=== PATIENT | female | born 1990 | race African-American/Black ===

== ENCOUNTER 2016-10-13 22:29 | Emergency (ER) | payer MEDICARE, OTHER ==
[~2016-10-13] VITALS: Ht 154.9 cm; Wt 43.1 kg
[2016-10-13 22:44] VITALS: BP 152/86
[2016-10-13] MEDS ORDERED: FLUORESCEIN OPHTH TEST STRIP. ONE (23:09)
[2016-10-13] MEDS ORDERED: PROPARACAINE 0.5% OPHTH SOLUTION 15ML BOTTLE. ONE (23:10)
[2016-10-13] MEDS ORDERED: FLUORESCEIN OPHTH TEST STRIP. OS ONE (23:15)
[2016-10-13] MEDS ORDERED: PROPARACAINE 0.5% OPHTH SOLUTION 15ML BOTTLE. OS ONE (23:15)
[2016-10-13] MEDS ORDERED: ERYTHROMYCIN 0.5% OPHTH OINTMENT 1GM TUBE. OS ONE (23:30)
[2016-10-13] MEDS ORDERED: ERYT1OIN6 LEFTEYE (23:31)
--- NOTE | 2016-10-13 23:32 | PHYS DOC ---
Past Medical History Past Medical History: Seizure, Other Additional Past Medical Histor: CHRONIC HIVES Past Surgical History: No Surgical History Alcohol Use: None Drug Use: None Adult General Chief Complaint Chief Complaint: EYE PROBLEMS HPI HPI Patient is a 25 year old female who presents with complaint of left eye pain. Patient states that she accidentally poked herself in the eye yesterday and has been having pain to the left eye since. Patient noticed increased redness and irritation after awakening today. Patient has been using Visine drops with no relief in symptoms. Patient states that she has had clear drainage from the eye. Patient denies any purulent drainage, fever, or any other symptoms. Review of Systems Review of Systems Constitutional: Denies fever or chills [] Eyes: Left eye redness and pain, denies change in visual acuity [] HENT: Denies nasal congestion or sore throat [] Neurologic: Denies headache, focal weakness or sensory changes [] Current Medications Current Medications Current Medications Medications (Trade) Dose Ordered Sig/Gena Start Time Stop Time Status Last Admin Dose Admin Erythromycin (Romycin) 0.5 inch 1X STAT 10/13/16 23:23 10/13/16 23:24 UNV Fluorescein Sodium (Ful-Evita) 1 strip STK-MED ONCE 10/13/16 23:09 10/13/16 23:10 DC Proparacaine HCl (Alcaine) 150 drop STK-MED ONCE 10/13/16 23:10 10/13/16 23:11 DC Allergies Allergies Allergies Coded Allergies Type Severity Reaction Last Updated Verified No Known Drug Allergies 10/13/16 No Physical Exam Physical Exam Constitutional: Well developed, well nourished, no acute distress, non-toxic appearance. [] HENT: Normocephalic, atraumatic, bilateral external ears normal, oropharynx moist, no oral exudates, nose normal. [] Eyes: PERRLA, EOMI, left scleral injection present, inspection under Wood's lamp using fluorescein dye shows 3 small corneal abrasions overlying the pupil. [] Neurologic: Alert and oriented X 3, normal motor function, normal sensory function, no focal deficits noted. [] Current Patient Data Vital Signs Vital Signs Date Time Temp Pulse Resp B/P (MAP) Pulse Ox O2 Delivery O2 Flow Rate FiO2 10/13/16 22:44 98.2 113 18 100 Room Air 98.2 EKG EKG Not performed [] Radiology/Procedures Radiology/Procedures Not performed [] Course & Med Decision Making Course & Med Decision Making Pertinent Labs and Imaging studies reviewed. (See chart for details) Patient was treated with erythromycin eye ointment for corneal abrasion. Advise follow-up in 3-5 days a primary doctor if symptoms are not improving and return to emergency department for any worsening symptoms. Patient voiced understanding and in agreement with treatment plan. Dragon Disclaimer Dragon Disclaimer This electronic medical record was generated, in whole or in part, using a voice recognition dictation system. Departure Departure Impression: Primary Impression: Left corneal abrasion Disposition: HOME, SELF-CARE Condition: IMPROVED Referrals: UNKNOWN PCP NAME (PCP) Patient Instructions: Eye - Corneal Abrasion Additional Instructions: Follow-up with your primary doctor in 3-5 days if symptoms are not improving. Return to the emergency department for any worsening symptoms. Scripts Erythromycin Base (Erythromycin) 1 Gm Oint...g. 0.5 INCH LEFTEYE QID for 5 Days, #1 TUBE Prov: VIDYA GREENE MD 10/13/16 Problem Qualifiers Primary Impression: Left corneal abrasion Encounter type: initial encounter Qualified Codes: S05.02XA - Injury of conjunctiva and corneal abrasion without foreign body, left eye, initial encounter VIDYA GREENE MD Oct 13, 2016 23:32
== END 2016-10-13 23:42 | disposition home or self-care (01) ==
LOC: ER 22:29
DX: S05.02XA Injury of conjunctiva and corneal abrasion without foreign body, left eye, initial encounter (principal); W50.0XXA Accidental hit or strike by another person, initial encounter; Y93.89 Activity, other specified; Y92.89 Other specified places as the place of occurrence of the external cause; Y99.8 Other external cause status
CPT/HCPCS: 99283; 99284

== ENCOUNTER 2020-07-05 09:56 | Emergency (ER) | payer OTHER, MEDICAID ==
[~2020-07-05] VITALS: Ht 160 cm; Wt 50.0 kg
[~2020-07-05 09:56] MED LIST: ERYT1OIN6 LEFTEYE
[2020-07-05 10:07] VITALS: BP 149/86
[2020-07-05] MEDS ORDERED: TETRACAINE 0.5% OPHTH SOLUTION 4ML BOTTLE. OU ONE (10:30)
[2020-07-05] MEDS ORDERED: FLUORESCEIN OPHTH TEST STRIP. ONE (10:39)
[2020-07-05] MEDS ORDERED: FLUORESCEIN OPHTH TEST STRIP. OS ONE (10:45)
[2020-07-05] MEDS ORDERED: GENT3.5O9 OD (10:51)
[2020-07-05] MEDS ORDERED: TOBR5DRO6 OD (10:51)
--- NOTE | 2020-07-05 10:51 | PHYS DOC ---
Past Medical History Past Medical History: Seizure, Other Additional Past Medical Histor: CHRONIC HIVES, AUTISM Past Surgical History: No Surgical History Smoking Status: Never Smoker Alcohol Use: None Drug Use: None General Adult EDM: Chief Complaint: EYE PROBLEMS HPI: HPI: Patient is a 29 year old female who presented to ER for evaluation of right ankle pain. Patient said her brother accidentally poked on the right 2 days ago. Patient said the light bothers her. She is not up-to-date on her tetanus vaccination status. Review of Systems: Review of Systems: Constitutional: Denies fever or chills. [] Eyes: Positive for right eye pain HENT: Denies nasal congestion or sore throat. [] Respiratory: Denies cough or shortness of breath. [] Cardiovascular: Denies chest pain or edema. [] GI: Denies abdominal pain, nausea, vomiting, bloody stools or diarrhea. [] : Denies dysuria. [] Musculoskeletal: Denies back pain or joint pain. [] Integument: Denies rash. [] Neurologic: Denies headache, focal weakness or sensory changes. [] Endocrine: Denies polyuria or polydipsia. [] Lymphatic: Denies swollen glands. [] Psychiatric: Denies depression or anxiety. [] Heart Score: C/O Chest Pain: N/A Risk Factors: Risk Factors: DM, Current or recent (<one month) smoker, HTN, HLP, family history of CAD, obesity. Risk Scores: Score 0 - 3: 2.5% MACE over next 6 weeks - Discharge Home Score 4 - 6: 20.3% MACE over next 6 weeks - Admit for Clinical Observation Score 7 - 10: 72.7% MACE over next 6 weeks - Early Invasive Strategies Current Medications: Current Medications Medications (Trade) Dose Ordered Sig/Gena Start Time Stop Time Status Last Admin Dose Admin Fluorescein Sodium (Ful-Evita) 1 strip STK-MED ONCE 07/05/20 10:39 07/05/20 10:39 DC Tetracaine HCl (Tetracaine) 1 drop 1X ONCE 07/05/20 10:30 07/05/20 10:32 DC 07/05/20 10:40 1 DROP Allergies: Allergies: Allergies Coded Allergies Type Severity Reaction Last Updated Verified No Known Drug Allergies 10/13/16 No Physical Exam: PE: Constitutional: Well developed, well nourished, no acute distress, non-toxic appearance. [] HENT: Normocephalic, atraumatic, bilateral external ears normal, oropharynx moist, no oral exudates, nose normal. [] Eyes: PERRLA, EOMI, conjunctiva normal, no discharge. Corneal abrasion in the middle of the cornea on the right side, positive for dye uptake, negative Alanna test. Neck: Normal range of motion, no tenderness, supple, no stridor. [] Cardiovascular:Heart rate regular rhythm, no murmur [] Lungs & Thorax: Bilateral breath sounds clear to auscultation [] Abdomen: Bowel sounds normal, soft, no tenderness, no masses, no pulsatile masses. [] Skin: Warm, dry, no erythema, no rash. [] Back: No tenderness, no CVA tenderness. [] Extremities: No tenderness, no cyanosis, no clubbing, ROM intact, no edema. [] Neurologic: Alert and oriented X 3, normal motor function, normal sensory function, no focal deficits noted. [] Psychologic: Affect normal, judgement normal, mood normal. [] Current Patient Data: Vital Signs: Vital Signs Date Time Temp Pulse Resp B/P (MAP) Pulse Ox O2 Delivery O2 Flow Rate FiO2 07/05/20 10:07 98.1 115 16 149/86 (107) 98 Room Air 98.1 EKG: EKG: [] Radiology/Procedures: Radiology/Procedures: [] Course & Med Decision Making: Course & Med Decision Making Pertinent Labs and Imaging studies reviewed. (See chart for details) Patient is a 29-year-old female who presented to ER due to corneal abrasion, patient was discharged home in stable condition with antibiotic ointment and antibiotic eyedrops Dragon Disclaimer: Dragon Disclaimer: This electronic medical record was generated, in whole or in part, using a voice recognition dictation system. Departure Departure Impression: Primary Impression: Corneal abrasion, right Disposition: 01 DC HOME SELF CARE/HOMELESS Condition: STABLE Referrals: CORONA ADAME MD (PCP) OZ PACHECO MD PLEASE CALL THIS EYE DOCTOR FOR FOLLOW UP THIS WEEK Patient Instructions: Eye - Corneal Abrasion Scripts Tobramycin Ophth (TOBRAMYCIN OPHTH DROPS) 5 Ml Drops 3 DROP OD QID for 7 Days, #5 ML 0 Refills Prov: JOANNA MIRANDA DO 07/05/20 Gentamicin Sulfate (GENTAMICIN SULFATE 0.3% OPHTH OINT) 3.5 Gm Oint...g. 1 PADMINI OD BID for 7 Days, #1 EACH Prov: JOANNA MIRANDA DO 07/05/20 JOANNA MIRANDA DO Jul 05, 2020 10:51
[2020-07-05] MEDS ORDERED: DIPH,PERTUSS(ACELL),TET VAC/PF 0.5 ML SYRINGE. VAX IM ONE (11:00)
== END 2020-07-05 11:00 | disposition home or self-care (01) ==
LOC: ER 09:56
DX: S05.01XA Injury of conjunctiva and corneal abrasion without foreign body, right eye, initial encounter (principal); M25.571 Pain in right ankle and joints of right foot; Z98.890 Other specified postprocedural states; Y08.89XA Assault by other specified means, initial encounter; Y93.89 Activity, other specified; Y92.89 Other specified places as the place of occurrence of the external cause; Y99.8 Other external cause status
CPT/HCPCS: 90471; 90715; 99283